=== PATIENT | male | born 1995 | race Caucasian/White ===

== ENCOUNTER 2019-05-23 14:34 | Emergency (ER) | payer SELFPAY ==
[2019-05-23] MEDS ORDERED: AMOXICILLIN875 MG PO (15:33)
[2019-05-23 15:44] VITALS: BP 152/87
== END 2019-05-23 15:44 | disposition home or self-care (01) | DRG 153 ==
LOC: ED 14:34
DX: J02.9 Acute pharyngitis, unspecified (principal); R50.9 Fever, unspecified

== ENCOUNTER 2022-04-03 09:46 | Emergency (ER) | payer SELFPAY ==
[~2022-04-03] VITALS: Ht 175.3 cm; Wt 109.0 kg
[~2022-04-03 09:46] MED LIST: AMOXICILLIN875 MG PO
[2022-04-03] MEDS ORDERED: PAXLOVID PO (11:23)
[2022-04-03 11:48] VITALS: BP 141/95
== END 2022-04-03 11:48 | disposition home or self-care (01) | DRG 179 ==
LOC: ED 09:46
DX: U07.1 COVID-19 (principal)

== ENCOUNTER 2022-05-24 14:54 | Emergency (ER) | payer SELFPAY ==
[~2022-05-24] VITALS: Ht 175.3 cm; Wt 121.0 kg
[~2022-05-24 14:54] MED LIST changes: +PAXLOVID PO
[2022-05-24 16:07] VITALS: BP 125/96
[2022-05-24 16:16] VITALS: BP 133/84
[2022-05-24 16:25] LABS: URINE BILIRUBIN - DIPSTICK NEGATIVE (NEGATIVE); URINE BLOOD DIPSTICK SMALL (NEGATIVE); URINE COLOR YELLOW; URINE GLUCOSE - DIPSTICK NEGATIVE (NEGATIVE); URINE KETONE NEGATIVE (NEGATIVE); URINE LEUK ESTERASE NEGATIVE (NEGATIVE); URINE PROTEIN - DIPSTICK NEGATIVE (NEG-TRACE); URINE SPECIFIC GRAVITY 1.015
[2022-05-24 16:31] VITALS: BP 110/80
[2022-05-24 16:33] LABS: URINE NITRITE - DIPSTICK NEGATIVE (Negative)
[2022-05-24 16:43] LABS: URINE WBC 0-2 WBC/hpf (0-5)
[2022-05-24 16:46] VITALS: BP 132/76
[2022-05-24 19:16] VITALS: BP 112/76
[2022-05-24] MEDS ORDERED: TORADOL PO (19:35)
[2022-05-24] MEDS ORDERED: TAMSULOSIN0.4 MG PO (19:35)
[2022-05-24 19:51] VITALS: BP 112/76
== END 2022-05-24 20:01 | disposition home or self-care (01) | DRG 694 ==
LOC: ED 14:54
PROVIDERS: Nurse Practitioner
DX: N20.1 Calculus of ureter (principal); N50.811 Right testicular pain

== ENCOUNTER 2022-06-14 08:50 | Emergency (ER) | payer SELFPAY ==
[~2022-06-14] VITALS: Ht 175.3 cm; Wt 124.4 kg
[~2022-06-14 08:50] MED LIST changes: +TAMSULOSIN0.4 MG PO; +TORADOL PO
[2022-06-14 09:05] VITALS: BP 126/81
[2022-06-14 09:29] LABS: URINE BILIRUBIN - DIPSTICK NEGATIVE (NEGATIVE); URINE BLOOD DIPSTICK SMALL (NEGATIVE); URINE COLOR YELLOW; URINE GLUCOSE - DIPSTICK NEGATIVE (NEGATIVE); URINE KETONE NEGATIVE (NEGATIVE); URINE LEUK ESTERASE NEGATIVE (NEGATIVE); URINE PH 6.5 (4.5-8.0); URINE PROTEIN - DIPSTICK NEGATIVE (NEG-TRACE); URINE SPECIFIC GRAVITY 1.025
[2022-06-14 09:41] LABS: URINE NITRITE - DIPSTICK NEGATIVE (Negative)
[2022-06-14 10:21] LABS: BASO% 0.4 % (0-3); EOS% 2.7 % (0-8); HEMATOCRIT 47.2 % (39.0-50.0); HEMOGLOBIN 16.1 g/dl (14.0-18.0); IMMATURE GRANULOCYTES 0.3 % (0.0-5.0); MEAN CELL VOLUME 87.4 fL CALC (80.0-100.0); MEAN CORPUSCULAR HGB 29.8 pG CALC (26.0-32.0); MEAN CORPUSCULAR HGB CONC 34.1 g/dL CAL (32.0-36.0); MONO% 9.3 % (2-13); NEUT# 4.2 thou/uL (1.82-7.42); NEUT% 60.3 % (42-76); RED BLOOD COUNT 5.4 mill/uL (4.70-6.10); RED CELL DISTRI WIDTH 11.7 % (11.5-15.5)
[2022-06-14 10:49] VITALS: BP 120/83
[2022-06-14 11:21] LABS: ALBUMIN 4.7 g/dL (3.2-5.0); ALKALINE PHOSPHATASE 72 u/l (38-126); ANION GAP 12 (6-22 (CALC)); BILIRUBIN, TOTAL 0.6 mg/dL (0.2-1.3); BUN 18 mg/dL (9-20); BUN/CREATININE RATIO 18 (12-20 (CALC)); CARBON DIOXIDE 27 mmol/l (22-30); CHLORIDE 105 mmol/l (95-108); GFR FOR AFR.AMER. > 60 ML/MIN (>=60 (CALC)); GFR OTHER RACES > 60 ML/MIN (>=60 (CALC)); POTASSIUM 3.7 mmol/l (3.5-5.1); SGOT/AST 76 u/l (17-59); SODIUM 141 mmol/l (137-146); TOTAL PROTEIN 7.9 g/dL (6.3-8.2)
[2022-06-14] MEDS ORDERED: TAMSULOSIN0.4 MG PO (11:38)
[2022-06-14 11:41] VITALS: BP 120/83
== END 2022-06-14 11:48 | disposition home or self-care (01) | DRG 696 ==
LOC: ED 08:50
PROVIDERS: Family Medicine
DX: R31.9 Hematuria, unspecified (principal); N21.0 Calculus in bladder